=== PATIENT | male | born 1980 | race Caucasian/White ===

== ENCOUNTER 2016-07-01 16:34 | Emergency (ER) | payer SELFPAY ==
[2016-07-01 16:46] VITALS: BP 135/91
--- NOTE | 2016-07-01 16:47 | ER Document Report ---
ED Medical Screen (RME) - General Stated Complaint: GROIN PAIN Time seen by provider: 16:45 Mode of Arrival: Ambulatory Notes: Patient complains of intermittent swelling and pain to the left groin area for 1 week. Patient denies known injury, and no previous history of hernia in that area. Patient is able to push the lump back in. Pain level is 1 or 2 out of 5. No pain radiation into the testicles. No dysuria, no abdominal pain, no nausea or vomiting, no diarrhea. I have greeted and performed a rapid initial assessment of this patient. A comprehensive ED assessment and evaluation of the patient, analysis of test results and completion of the medical decision making process will be conducted by additional ED providers. TRAVEL OUTSIDE OF THE [place] IN LAST 30 DAYS: No COUNTRY TRAVELED TO/FROM: [place] - Related Data Allergies/Adverse Reactions: cefaclor [From Ceclor] Allergy (Verified 07/01/16 16:44) swell,airway closes cephalexin monohydrate [From Keflex] Allergy (Verified 07/01/16 16:44) swell,airway closes Penicillins Allergy (Verified 07/01/16 16:44) swell,airway closes tetracycline [Tetracycline] Allergy (Verified 07/01/16 16:44) swell,airway closes Past Medical History - Past Medical History Cardiac Medical History: Reports: Hx Hypercholesterolemia Denies: Hx Coronary Artery Disease, Hx Heart Attack, Hx Hypertension Pulmonary Medical History: Reports: Hx Asthma - inhaler occas/allergies Denies: Hx Bronchitis, Hx COPD, Hx Pneumonia Neurological Medical History: Denies: Hx Cerebrovascular Accident, Hx Seizures Musculoskeltal Medical History: Denies Hx Arthritis Psychiatric Medical History: Reports: Hx Anxiety Past Surgical History: Reports: Hx Appendectomy, Hx Tonsillectomy - adenoids. Denies: Hx Pacemaker - Immunizations Hx Diphtheria, Pertussis, Tetanus Vaccination: Yes
[2016-07-01 17:46] LABS: APPEARANCE,URINE CLEAR; BILIRUBIN,URINE NEGATIVE (NEGATIVE); GLUCOSE, URINE NEGATIVE (NEGATIVE); KETONES,URINE NEGATIVE (NEGATIVE); LEUKOCYTE ESTERASE,URINE NEGATIVE (NEGATIVE); NITRITE,URINE NEGATIVE (NEGATIVE); PROTEIN,URINE NEGATIVE (NEGATIVE); URINE SPECIFIC GRAVITY 1.005; UROBILINOGEN,URINE NEGATIVE mg/dL (<2.0)
[2016-07-01] MEDS ORDERED: AMOXICILLIN TR/POT CLAVULANATE 500-125 MG TAB PO ONE (18:43)
--- NOTE | 2016-07-01 18:52 | ER Document Report ---
ED GI/ - General Chief Complaint: Groin Pain Stated Complaint: GROIN PAIN Mode of Arrival: Ambulatory Information source: Patient Notes: 35-year-old male with past medical history as recorded who presents today with some pain over this last week to the left groin. He states he felt as if a "knot developed". He denies any redness, swelling, or pain to the testicles. He denies any penile discharge or lesions. He denies any new sexual partners. He denies any dysuria, nausea, or vomiting. TRAVEL OUTSIDE OF THE [place] IN LAST 30 DAYS: No COUNTRY TRAVELED TO/FROM: [facility] Patient complains to provider of: Other - See above Onset: Other - See above Timing/Duration: Gradual Quality of pain: Achy Severity at maximum: Mild Severity in ED: Mild Pain Level: 1 Sexual history: Active Associated symptoms: Other - See above Exacerbated by: Denies Relieved by: Denies Similar symptoms previously: No Recently seen / treated by doctor: Yes - Related Data Allergies/Adverse Reactions: cefaclor [From Ceclor] Allergy (Verified 07/01/16 16:44) swell,airway closes cephalexin monohydrate [From Keflex] Allergy (Verified 07/01/16 16:44) swell,airway closes Penicillins Allergy (Verified 07/01/16 16:44) swell,airway closes tetracycline [Tetracycline] Allergy (Verified 07/01/16 16:44) swell,airway closes Past Medical History - General Information source: Patient - Social History Smoking Status: Unknown if Ever Smoked Chew tobacco use (# tins/day): No Frequency of alcohol use: Occasional Drug Abuse: None Family History: Other - Grandmother of an IA when she was rather young, but she had "heart damage from Rheumatic Fever" Patient has suicidal ideation: No Patient has homicidal ideation: No - Past Medical History Cardiac Medical History: Reports: Hx Hypercholesterolemia Denies: Hx Coronary Artery Disease, Hx Heart Attack, Hx Hypertension Pulmonary Medical History: Reports: Hx Asthma - inhaler occas/allergies Denies: Hx Bronchitis, Hx COPD, Hx Pneumonia Neurological Medical History: Denies: Hx Cerebrovascular Accident, Hx Seizures Renal/ Medical History: Denies: Hx Peritoneal Dialysis Musculoskeltal Medical History: Denies Hx Arthritis Psychiatric Medical History: Reports: Hx Anxiety Past Surgical History: Reports: Hx Appendectomy, Hx Tonsillectomy - adenoids. Denies: Hx Pacemaker - Immunizations Hx Diphtheria, Pertussis, Tetanus Vaccination: Yes Physical Exam - Vital signs Vitals: Temp Pulse Resp BP Pulse Ox 97.9 F 91 15 135/91 H 97 07/01/16 16:45 07/01/16 16:45 07/01/16 16:45 07/01/16 16:45 07/01/16 16:45 Notes: Reviewed vital signs and nursing note as charted by RN. CONSTITUTIONAL: Alert and oriented and responds appropriately to questions. Well -appearing; well-nourished ABD/GI: Normal bowel sounds; non-distended; soft, nontender to palpation of all 4 quadrants of the abdomen GI/: Patient has a palpable mobile lymph node to the left inguinal region. There is no overlying skin swelling, induration, or erythema. BACK: The back appears normal and is non-tender to palpation, there is no CVA tenderness EXT: Normal ROM in all joints; non-tender to palpation; no cyanosis, no effusions, no edema SKIN: See above Course - Re-evaluation Re-evalutation: 07/01/16 18:55 Given the history and physical examination, with no penile discharge, dysuria, fevers, new sexual partners, penile lesions, abdominal tenderness or swelling, skin swelling or induration, a palpable and mobile nodule, I do not believe that this is a hernia. I've explained this to the patient. I have offered the patient a CT scan or an ultrasound for definitive diagnostic evaluation or explained that he can just watch and wait to see if any symptoms progress. He states that he would rather just watch and wait as he states it is not very uncomfortable. Given the inguinal lymphadenopathy, I will order a urine GC/ Chlamydia. Strict return precautions will be explained. - Vital Signs Vital signs: Temp Pulse Resp BP Pulse Ox 97.9 F 91 15 135/91 H 97 07/01/16 16:45 07/01/16 16:45 07/01/16 16:45 07/01/16 16:45 07/01/16 16:45 Discharge - Discharge Clinical Impression: Lymph node enlargement Condition: Good Disposition: HOME, SELF-CARE Additional Instructions: Come back immediately for any increased pain, swelling, redness, fever, penile discharge, or any other acute problems. Please follow-up with the urologist as we have discussed. Referrals: BRAULIO IGNACIO MD [[email or web address] RUFFIN] - Follow up as needed
== END 2016-07-01 19:32 | disposition home or self-care (01) ==
LOC: ER 16:34
DX: R59.0 Localized enlarged lymph nodes (principal); J45.909 Unspecified asthma, uncomplicated; Z88.1 Allergy status to other antibiotic agents; Z88.0 Allergy status to penicillin; Z90.49 Acquired absence of other specified parts of digestive tract
CPT/HCPCS: 81001; 99283